=== PATIENT | female | born 1980 ===

== ENCOUNTER 2024-03-10 07:06 | Outpatient (REF) | payer OTHER, SELFPAY ==
--- NOTE | ~2024-03-10 | XR_ITS ---
EXAMINATION: XR ANKLE, RIGHT CLINICAL INFORMATION: Pain right ankle and joints of the foot. COMPARISON: None available. TECHNIQUE: AP, lateral, and mortise views of the right ankle. FINDINGS: Bone mineralization is normal. Small dorsal and plantar calcaneal spurs. Corticated ossicle at the dorsal aspect of the talonavicular joint. Ankle joint effusion and soft tissue swelling. Small ossicles in the soft tissues medial to the medial malleolus of indeterminate age and etiology. XR/XR ankle RT min 3V IMPRESSION: 1. Ankle joint effusion and soft tissue swelling. Small ossicles in the soft tissues medial to the medial malleolus of indeterminate age and etiology. 2. Recommend follow-up imaging in 10-14 days if fracture is suspected.
== END 2024-03-10 07:07 | disposition home or self-care (01) ==
LOC: HO.HOSX 07:06
PROVIDERS: Visit Provider Physician Assistant
DX: M25.571 Pain in right ankle and joints of right foot (principal)
CPT/HCPCS: 73610

== ENCOUNTER 2024-03-10 09:11 | Outpatient (AMB) | payer OTHER, SELFPAY ==
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
[2024-03-10 09:24] VITALS: BMI 27.5
== END 2024-03-10 10:16 | disposition home or self-care (01) ==
PROVIDERS: Visit Provider Physician Assistant
DX: S93.401A Sprain of unspecified ligament of right ankle, initial encounter (principal); Z04.3 Encounter for examination and observation following other accident
CPT/HCPCS: 99203

== ENCOUNTER 2024-06-08 09:00 | Outpatient (RCR) | payer OTHER, SELFPAY ==
--- NOTE | 2024-12-29 15:20 | MHC.PT.DC ---
[facility] [place] [facility] [place] Office [place] Office [address] Saniya Morillo [address] [phone] F: [phone] F: [phone] F: [phone] F: [phone] Physical Therapy Discharge Report Diagnosis: R ankle sprain Date of Surgery: Date of Evaluation: 04/25/24 Date of Discharge: 06/20/24 Treatments to Date: 11 Cancellations to Date: No Shows to Date: Discharge Status: Improved Function Independent with HEP Patient Elected to Stop Discharge Summary: Pt did not follow up with her final PT visits for final assessment. Electronically signed by: Elgin Burnett PT. Please sign and return to therapist. Thank you for your referral.
== END 2024-12-29 15:20 | disposition home or self-care (01) ==
LOC: HO.PT 09:00
PROVIDERS: PCP Internal Medicine; Visit Provider Physician Assistant
DX: S93.401D Sprain of unspecified ligament of right ankle, subsequent encounter (principal)
CPT/HCPCS: 97014; 97110; 97112; 97140; 97161; 97164; 97530

== ENCOUNTER 2024-06-14 09:54 | Outpatient (AMB) | payer OTHER, SELFPAY ==
--- NOTE | 2024-06-14 09:56 | A.OFFVIS_ITS ---
Intake Visit Reasons: OV-right foot numbness/tingling Intake Note: Roberta is a 44 year old female who presents to the office today for right foot numbness and tingling follow up. Pt states she has been doing PT will some relief but states she is still having the tingling/shocking in her right foot. Pt states the numbness and tingling goes to her toes and up to her knee. Pt states she just got approved for her foot insole so she hasnt been able to use it yet. Allergies No Known Allergies Allergy (Verified 06/14/24 09:57) Medication List - Last Reconciled 06/14/24 by Clarice Avilez PA-C [Anti-pronation orthotics Anti-pronation orthotics] celecoxib (Celebrex) 200 mg PO BID 30 days dextroamphetamine-amphetamine 10 mg 1 tab PO DAILY dextroamphetamine-amphetamine 30 mg ER (Adderall XR) 1 cap PO QAM ibuprofen 800 mg PO TID HPI HPI OV-right foot numbness/tingling: Details: 44-year-old female who returns to the office today for a follow-up of right foot. She continues to have pain, numbness, tingling and shocking sensation in her foot that radiates to her knee. She has been attending physical therapy with good relief. She has been taking gabapentin for her pain with benefits. Review of Systems Const All systems reviewed & are unremarkable except as noted in HPI and below Physical Exam Const General: cooperative, healthy appearing, comfortable, no acute distress, well developed and alert Orientation/consciousness: patient oriented x3 HEENT Head: Yes normal to inspection, Yes normocephalic and Yes atraumatic Eyes General: appearance normal, both eyes and all related structures Resp Effort & Inspection: normal respiratory effort and able to speak in complete sentences Cardio Rate: regular rate Peripheral pulses: Peripheral pulses 2+ throughout GI Palpation (GI): Soft to palpation Skin General skin exam: no rashes or lesions noted Lesions: no lesions Rashes: no rashes Neuro General: patient oriented x3 Extrem Other: Right ankle: Normal to inspection with mild tenderness along the soft tissues / ATFL . No discomfort along the posterior aspect of the ankle along the achilles tendon, no deformity along the Achilles tendon, negative Florian?s. No pain along the syndesmosis or anterior tibia. No laxity, Positive tinels over the tarsal tunnel . Assessment & Plan Assessment & Plan (1) Right ankle sprain: Code(s): S93.401A - Sprain of unspecified ligament of right ankle, initial encounter Category: Medical Qualifiers: Encounter type: initial encounter Involved ligament of ankle: anterior talofibular ligament Qualified Code(s): S93.491A - Sprain of other ligament of right ankle, initial encounter Plan An EMG/nerve conduction study was ordered to further evaluate her RLE etiology of hre ongoing numbness and tingling in right foot. I encouraged working with physical therapy and wearing appropriate footwear as well as use of her lace up ASO brace to help with her stability. She will discontinue Celebrex and use ibuprofen to take twice a day for 2 weeks to help with her discomfort. She will see me back once the scan is complete. Orders: Orders NE nerve conduction velocity Today R20.0 - Anesthesia of skin, R20.2 - Paresthesia of skin NE electromyogram (EMG) Today R20.0 - Anesthesia of skin, R20.2 - Paresthesia of skin Patient Instructions: Scribed for Clarice Avilez PA-C, by Garett Barnes family practice medical doctor, on 06/14/2024 at 9:45 AM EST.? I, Clarice Avilez PA-C, have personally reviewed and agree with the information entered by the scribe. Coding Level of Care Code Est Pt Level 3 (16987) Complex EM visit Add On G2211 Diagnoses Sprain of anterior talofibular ligament of right ankle, initial encounter S93.491A Encounter type: initial encounter Involved ligament of ankle: anterior talofibular ligament
== END 2024-06-14 10:09 | disposition home or self-care (01) ==
PROVIDERS: PCP Internal Medicine; Visit Provider Physician Assistant
DX: S93.491A Sprain of other ligament of right ankle, initial encounter (principal)
CPT/HCPCS: 99213; G2211

== ENCOUNTER → 2024-06-14 09:54 | Outpatient (BNVA) | payer OTHER, SELFPAY | PROVIDERS: PCP Internal Medicine; Visit Provider Physician Assistant | DX: S93.491A Sprain of other ligament of right ankle, initial encounter (principal) | CPT/HCPCS: 99212 ==

== ENCOUNTER 2024-08-02 09:02 | Outpatient (REF) | payer OTHER, SELFPAY ==
--- NOTE | 2024-08-02 09:08 | EMG_ITS ---
Chief complaint: Had right ankle sprain 07/2023, continues to have by paresthesias on right dorsal foot. Reason for referral: Evaluate for neuropathy Referred by: Clarice BARRY Procedure done: Right lower extremity NCS/EMG Precautions and/or limitations: None The limb temperature was monitored continuously and remained between 32-36 degrees C during the performance of the NCS. Nerve Conduction Studies Anti Sensory Summary Table ?Stim Site NR Onset (ms) Norm Onset (ms) Peak (ms) Norm Peak (ms) O-P Amp (?V) Norm O-P Amp Site1 Site2 Delta-0 (ms) Dist (cm) Tuan (m/s) Norm Tuan (m/s) Right Sural Anti Sensory (Lat Mall) Calf ? 2.5 3.3 <4.0 16.9 >5.0 Calf Lat Mall 2.5 14.0 56 Motor Summary Table ?Stim Site NR Onset (ms) Norm Onset (ms) O-P Amp (mV) Norm O-P Amp iAmp (mV) Amp (1st) (%) Site1 Site2 Delta-0 (ms) Dist (cm) Tuan (m/s) Norm Tuan (m/s) Right Peroneal Motor (Ext Dig Brev) Ankle ? 4.0 <4.0 3.6 >2.5 4.4 100.0 Ankle Ext Dig Brev 4.0 0.0 B Fib ? 10.2 3.5 4.3 97.2 B Fib Ankle 6.2 32.0 52 >40 Poplt ? 10.8 3.5 4.3 97.2 Poplt B Fib 0.6 6.0 100 >40 Right Tibial Motor (Abd Yadav Brev) Ankle ? 3.3 <5 7.7 >2.5 11.8 100.0 Ankle Abd Yadav Brev 3.3 0.0 Knee ? 11.0 5.7 8.8 74.0 Knee Ankle 7.7 38.0 49 >40 EMG ?Side Muscle Nerve Root Ins Act Fibs Psw Amp Dur Poly Recrt Int Pat Comment Right AntTibialis Dp Br Peron L4-5 Nml Nml Nml Nml Nml 0 Nml Complete Right MedGastroc Tibial S1-2 Nml Nml Nml Nml Nml 0 Nml Complete Right VastusMed Femoral L2-4 Nml Nml Nml Nml Nml 0 Nml Complete Right Peroneus Long Sup Br Peron L5-S1 Nml Nml Nml Nml Nml 0 Nml Complete Right PostTibialis Tibial L5, S1 Nml Nml Nml Nml Nml 0 Nml Complete FINDINGS: All motor and sensory nerves tested showed normal latencies, amplitudes and conduction velocities. Concentric needle EMG was performed in selected muscles of the right lower extremity. Study did not reveal signs of electric abnormalities as shown in the table above. IMPRESSION: 1. This is a normal study. 2. There is no electrodiagnostic evidence for peroneal neuropathy, tibial neuropathy, lumbosacral plexopathy, lumbar radiculopathy, or peripheral neuropathy. Thank you for your kind referral. Yanci Moreno MD, YONI Board Certified, [place] [employer] and [employer] (ABPMR) Board Certified, [place] Board [employer] Electrodiagnostic [employer] (ABEM) CODIN 54951 MTDD
== END 2024-08-02 09:03 | disposition home or self-care (01) ==
LOC: HO.NEURO 09:02
PROVIDERS: PCP Internal Medicine; Visit Provider Physician Assistant
DX: R20.0 Anesthesia of skin (principal); R20.2 Paresthesia of skin
CPT/HCPCS: 95886; 95908

== ENCOUNTER → 2024-08-02 09:08 | Outpatient (BNV) | payer OTHER, SELFPAY | PROVIDERS: PCP Internal Medicine; Visit Provider Physical Medicine & Rehabilitation | DX: R20.2 Paresthesia of skin (principal); R20.0 Anesthesia of skin | CPT/HCPCS: 95886; 95908 ==

== ENCOUNTER 2024-09-01 09:46 | Outpatient (AMB) | payer OTHER, SELFPAY ==
--- NOTE | 2024-09-01 09:46 | MHC.OFFVIS ---
Intake Visit Reasons: TH- RT foot EMG review Allergies No Known Allergies Allergy (Verified 06/14/24 09:57) Medication List - Last Reconciled 09/01/24 by Clarice Avilez PA-C [Anti-pronation orthotics Anti-pronation orthotics] celecoxib 200 mg PO BID dextroamphetamine-amphetamine 10 mg 1 tab PO DAILY dextroamphetamine-amphetamine 30 mg ER (Adderall XR) 1 cap PO QAM ibuprofen 800 mg PO TID HPI HPI TH- RT foot EMG review: Details: 44 yo female presents for telehealth EMG review right foot. She states she has some improvement in her symptoms since obtaining inserts for her shoes. She has also worked with PT. She states she does continue to have some numbness sensation at the end of a work day, otherwise, overall improved. Review of Systems Const All systems reviewed & are unremarkable except as noted in HPI and below Physical Exam Resp Effort & Inspection: normal respiratory effort and able to speak in complete sentences Telehealth Telehealth Patient verbally consented to treatment: Yes Patient verbally consented to billing insurance company: Yes Patient informed of any privacy concerns related to visit: Yes Results Reviewed Results Reviewed: IMPRESSION: 1. This is a normal study. 2. There is no electrodiagnostic evidence for peroneal neuropathy, tibial neuropathy, lumbosacral plexopathy, lumbar radiculopathy, or peripheral neuropathy. Assessment & Plan Assessment & Plan (1) Right ankle sprain: Code(s): S93.401A - Sprain of unspecified ligament of right ankle, initial encounter Category: Medical Qualifiers: Encounter type: initial encounter Involved ligament of ankle: anterior talofibular ligament Qualified Code(s): S93.491A - Sprain of other ligament of right ankle, initial encounter Plan: I encourgaed the patient to continue with proper shoe wear and her HEP from PT for her ankle to maintain her strength. If symptoms worsen or she has concerns, she will contact our office, otherwise, f/u prn Coding Level of Care Code Tele Est Pt Level 3 (14554) Diagnoses Sprain of anterior talofibular ligament of right ankle, initial encounter S93.491A Encounter type: initial encounter Involved ligament of ankle: anterior talofibular ligament
== END 2024-09-01 09:56 | disposition home or self-care (01) ==
LOC: HO.HOS 09:46
PROVIDERS: PCP Internal Medicine; Visit Provider Physician Assistant
DX: S93.491A Sprain of other ligament of right ankle, initial encounter (principal)
CPT/HCPCS: 99213

== ENCOUNTER 2025-02-19 15:11 | Outpatient (AMB) | payer OTHER, SELFPAY ==
[2025-02-19 15:15] VITALS: BP 152/84; PULSE 87; O2SAT 95; BMI 29.2
--- NOTE | 2025-02-19 15:15 | A.OFFVIS_ITS ---
Vital Signs 02/19/25 15:15 Height 5 ft 4 in Weight 170 lb 6.677 oz BMI 29.2 BP 152/84 H Blood Pressure Location Rt brachial Position Sitting Pulse 87 Pulse Source Pulse Oximeter Pulse Oximetry (%) 95 Oxygen Delivery Method Room Air Intake Visit Reasons: Obesity,DM Intake Note: New patient present today for Obesity. Patient reports she is taking compound Semaglutide, started approx 8-9 weeks ago and has lost 15 lbs since. Patient stated she does not have hx of DM. Backend Python Developer Required: No Accompanied by: Self / Same As Patient Allergies No Known Allergies Allergy (Verified 02/19/25 15:18) Medication List - Last Reconciled 02/19/25 by Enrike Canseco MD [Anti-pronation orthotics Anti-pronation orthotics] celecoxib 200 mg PO BID dextroamphetamine-amphetamine 10 mg 1 tab PO DAILY dextroamphetamine-amphetamine 30 mg ER (Adderall XR) 1 cap PO QAM ibuprofen 800 mg PO TID HPI Comments Details: The patient is a 44-year-old female presenting with obesity issues. She reports a longstanding history of weight management difficulties, having been thin into maturity and then starting to struggle with weight gain over the years due to overeating. Despite implementing a homeopathic diet and losing a significant amount of weight, she regained it after stopping due to its cost and upkeep demands. Recently, she has been prescribed compounded semaglutide, resulting in marked weight loss, though concerns have been raised about its safety and availability. The patient does not report any history of thyroid disorders or sleep apnea and maintains a regular sleep schedule. 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 Smoking cessation plans are noted contingent on achieving weight loss objectives. The patient also highlights past failures to maintain weight post- diet and complications from previous semaglutide formulations that lead to cessation. - Homeopathic medications leading to initial successful weight loss, later discontinued due to cost and sustainability. - Semaglutide compound, successfully reduced weight by 13-14 pounds, with current concerns over safety and availability. [facility] Medical History (Updated 02/19/25 @ 15:44 by Enrike Canseco MD) Obesity Diabetes Surgical History (Updated 02/19/25 @ 15:18 by PARESH Freeman) Hx of hand surgery Hx of tonsillectomy Family History (Updated 02/19/25 @ 15:19 by PARESH Freeman) Mother Epilepsy Lung cancer High blood pressure Father No known health problems Social History Alcohol intake: current Alcohol intake frequency: holidays/special occasions only Patient Tobacco Use Status: Current everyday Tobacco user Physical Exam Vital Signs: BMI result Body Mass Index 29.2 Absence of Cushingoid features. Thyroid gland of nl size and weighs 15 gms Neck Other: . Extrem Other: Visual exam of foot performed. No ulcerations or open lesions. No onchomycosis, no callouses.Pulses 2 + distally Sensation intact to monofilament exam. Vibratory sensation sensed is intact with 128 Hz tuning fork Assessment & Plan Assessment & Plan (1) Obesity: Code(s): E66.9 - Obesity, unspecified Category: Medical Plan 1. Obesity The patient exhibits an obesity clinical picture, previously addressed with compounded semaglutide. Following the safety concerns of compounded medications, exploration of approved alternatives like Wegovy or Zepbound is recommended. An appointment with a machine silk screen printer to tailor a structured diet and exercise regimen will ensure a foundational weight management approach. 3. Nutrition A referral to a machine silk screen printer aims to consolidate her dietary efforts, aligning structured dietary intervention with weight loss objectives, placing her in a stronger position for any future pharmacological support considerations. During our discussion, we addressed the primary concern of obesity, highlighting available pharmacological options while being mindful of the risks associated with compounded drugs. I explained the potential to pivot to FDA-approved medications contingent on insurance criteria. For proactive involvement, a structured nutrition and exercise regime will be pursued with the guidance of a videotape sales representative, indispensable for sustained weight control. Smoking cessation was acknowledged as critical, with patient commitment to quit post-weight reduction. I emphasized compliance with machine silk screen printer referrals to secure a thorough, comprehensive weight management picture. Exploring alternative payment plans for medications was suggested, considering insurance barriers experienced by others in similar situations. - Follow up with a machine silk screen printer to establish a structured diet and exercise plan. - Continue efforts toward smoking cessation. - Monitor weight regularly and report significant changes or concerns. - The patient was counseled to achieve a target A1C of 7% (154 avg). Fasting blood sugars should be 90-130 in the morning and less than 180 two hours after meals. Reviewed the relationship between poor diabetic control and the development of complications. Check your feet daily looking for any signs of infection, drainage, redness, ulceration and seek medical attention if this occurs. Break in shoes gradually and do not wear open-toed shoes or walk stocking footed or barefooted. The patient had an opportunity to ask questions regarding treatment plan. The patient expressed understanding and agreement with the above treatment plan. Patient was informed and verbally consented to the use of an ambient scribe for clinic note documentation during this visit. Orders: Orders Thyroid Stimulating Hormone Today E66.9 - Obesity, unspecified Free T4 (Free Thyroxine) Today E66.9 - Obesity, unspecified Referrals Nutrition/Dietitian Referral E66.9 - Obesity, unspecified Coding Level of Care Code New Pt Level 4 (91789) Diagnoses Obesity E66.9
--- OUTSIDE RECORDS SUMMARY | 2025-02-19 16:25 | XMS_ITS | Continuity of Care Document ---
Author Organization [facility] Adult Address [address] [place] [address]- Care Team Providers Care Extras Casting Director Name Role Phone Richard Davila MD Primary Care Physician [phone] [place] [facility] [place]25 [place] 02/13/25 [facility] [address] [place] [address]- Encounter Diagnosis Low back pain with left-sided sciatica(Discharge Diagnosis) - 02/06/25 Drug induced constipation(Discharge Diagnosis) - 02/06/25 Attending Physician: Richard Davila MD Encounter Type: Office Visit Allergies, Adverse Reactions, Alerts No Known Allergies Immunizations Given and Recorded Vaccine Date Status Refusal Reason SARS-CoV-2 (COVID-19) Ad26 vaccine 02/06/21 Record ed Tetanus Toxoid 04/05/15 Given Medications Adderall 10 mg oral tablet See Instructions, 1 tab po every day after lunch (patient takes the XR form of med daily at breakfast), # 28 tablet, 0 Refills, Maintenance, 01/29/25 8:06:00 AM EDT, [facility]/pharmacy #[id number], Partial fill upon patient request if the prescription is for a schedule II opioid drug., 1 tab po every day after lunch (patient takes the XR form of med daily at breakfast), 01/30/25, 164, cm, 10/10/24 13:50:00 EST , Height Start Date: 01/29/25 Status: Ordered Quantity: 28.0 Unit: tablet Repeat number: 1 Adderall XR 30 mg oral capsule, extended release 1 capsule = 30 mg, By Mouth, Daily in AM, # 28 capsule, 0 Refills, Maintenance, 01/29/25 8:06:00 AM EDT, ER Capsule, [id number], dose increase, 1 capsule By Mouth Daily in AM, 01/30/25, 164, cm, 10/10/24 13:50:00 EST, Height Start Date: 01/29/25 Status: Ordered Quantity: 28.0 Unit: capsule Repeat number: 1 duloxetine 60 mg oral enteric coated capsule 1 capsule, By Mouth, Daily, NEED INS., # 90 capsule, 4 Refills, Maintenance, 10/12/24 3:42:00 PM EST, [id number], 164, cm, 10/10/24 13:50:00 EST, Height Start Date: 10/12/24 Status: Ordered Quantity: 90.0 Unit: capsule Repeat number: 1 ibuprofen 800 mg oral tablet 1, tablet, By Mouth, 3 times a day, PRN, # 90 tablet, Refills 12, Maintenance, NEEDED FOR PAIN ,MODERATE, 06/19/24 7:22:00 AM EDT, Route to Pharmacy Electronically, [id number], 164, cm, 08/20/23 10:01:00 EST, Height Start Date: 06/19/24 Status: Ordered Quantity: 90.0 Unit: tablet Repeat number: 1 naproxen 500 mg oral tablet 1 tablet = 500 mg, By Mouth, 2 times a day, PRN for pain, with food, # 20 tablet, 0 Refills, Acute 02/16/25 10:58:00 AM EDT, 02/06/25 10:57:00 AM EDT, Tablet, [facility]/pharmacy #[id number], Partial fill upon patient request if the prescription is for a schedule II opioid drug., 164, cm, 02/06/25 10:42:00 EDT, Height Start Date: 02/06/25 Stop Date: 02/16/25 Status: Ordered Quantity: 20.0 Unit: tablet Repeat number: 1 semaglutide 0.5 mg/0.5 mL (0.5 mg dose) subcutaneous solution = 0.5 mg, Subcutaneous Injection, Every week, in the abdomen, thigh, or upper arm, # 2 mL, 0 Refills, Maintenance, 02/06/25 10:41:00 AM EDT, Solution, Partial fill upon patient request if the prescription is for a schedule II opioid drug. Start Date: 02/06/25 Stop Date: 03/06/25 Status: Ordered Quantity: 2.0 Unit: mL Repeat number: 1 Voltaren Arthritis Pain 1% topical gel 2.25 inches, Topically, 4 times a day, use dosing card to measure a dose, # 100 Gm, 0 Refills, Maintenance, 10/10/24 2:02:00 PM EST, Gel, [id number], Partial fill upon patient request if the prescription is for a schedule II opioid drug., 2.25 inches Topically 4 times a day,Instr:use dosing card to measure a dose, 164, cm, 10/10/24 13:50:00 EST, Height Start Date: 10/10/24 Status: Ordered Quantity: 100.0 Unit: g Repeat number: 1 Indication: Lateral epicondylitis, right elbow Problem List Condition Confirmation Course Effective Dates Status Health St atus Informant Anxiety 1 Confirmed Active [facility] arthritis Confirmed Active Attention deficit disorder Confirmed Active Overweight (BMI 25.0-29.9) Confirmed Active Burning epigastric pain Confirmed Active Cigarette smoker Confirmed Active Diarrhea Confirmed Active Excessive belching Confirmed Active Fibromyalgia, primary Confirmed Active Heartburn symptom Confirmed Active Low back pain with left-sided sciatica Confirmed Active General medical exam Confirmed Active Personal History of Peptic Ulcer Disease Confirmed 1995 Active Tobacco use disorder Confirmed Active 1with history of panic attacks. Diagnosis Diagnosis Type Effective Dates Health Status Clinical Service Informant Low back pain with left-sided sciatica Discharge Diagnosis 02/06/25 Drug induced constipation Discharge Diagnosis 02/06/25 Vital Signs Most recent to oldest [Reference Range]: 1 Height 164.00 cm (02/06/25 10:42 AM) Weight 76.9 kg (02/06/25 10:42 AM) Oxygen Saturation [94-100 %] 97 % (02/06/25 10:42 AM) Pulse Rate [55-90 bpm] 81 bpm (02/06/25 10:42 AM) Body Mass Index [18.5-24.99 kg/m2] 28.59 kg/m2 *H* (02/06/25 10:42 AM) Blood Pressure [90-138/55-84 mm Hg] 127/ 65mm Hg (02/06/25 10:42 AM) Temperature [96.8-100.4 DegF] 97.6 DegF (02/06/25 10:42 AM) Mode of Delivery (Oxygen) Room air (02/06/25 10:42 AM) Blood pressure sites Arm, left (02/06/25 10:42 AM) Temperature Route Oral (02/06/25 10:42 AM) Social History Social History Type Response Smoking Status 10 or more cigarette s (1/2 pack or more)/day in last 30 days; Started at age: 13; entered on: 07/30/23 Sex Sex Representation Female (finding) Note * Shilpa Gutierrez MA: PERFORM Event Display: Patient Education/Instruction Authored Date: Ambulatory Adult Visit Summary [facility] [address] [place] [address] Name: BYRON PARIKH : 1980?? Visit: 02/06/2025 10:35?? Ambulatory Visit Instructions ?? Your Care Team Primary Care Provider Richard Davila MD? This Visit Provider Richard Davila MD Your Diagnosis Low back pain with left-sided sciatica Drug induced constipation Vitals Signs Temperature: 97.6 DegF Height: 164 cm Pulse Rate: 81 bpm Weight: 76.9 kg Systolic Blood Pressure: 127 mm Hg Body Mass Index:??28.59 kg/m2??High Diastolic Blood Pressure: 65 mm Hg Body surface area: 1.87 Oxygen Saturation: 97 % ?? What to do next Instructions From Your Provider Naproxen 500 mg 2x a day for 10 days with food. ?? Call if persistent. ?? Miralax??17 grams mixed into fluid 1x a day titrating up or down per result. ? Follow-Up Appointments Follow Up with??Richard Davila MD When:??08/21/2025 02:40 PM EST Why: PHYSICAL?? Where: [address] [place] [address]- Medications The list below reflects the information in our records and provided by you today along with any changes made during this visit. Please continue your medications until treatment is completed or stopped by your provider. If this is different from the information you have or there are other questions,please contact the prescribing provider. What How Much When Why Instructions New Naproxen (naproxen 500 mg oral tablet) 1 tab(s) Oral Twice a day as needed for for pain with food ?? Pickup at [facility]/pharmacy #[id number] Unchanged Amphetamine-Dextroamphetamine (Adderall 10 mg oral tablet) See instructions 1 tab po every day after lunch (patient takes ??the XR form of med daily at breakfast) ?? Unchanged Amphetamine-Dextroamphetamine (Adderall XR 30 mg oral capsule, extended release) 1 capsule Oral Daily in the morning Unchanged Diclofenac Topical (Voltaren Arthritis Pain 1% topical gel) 2.25 Inch Topically 4 times a day Lateral epicondylitis, right elbow use dosing card to measure a dose ?? Unchanged Duloxetine (duloxetine 60 mg oral enteric coated capsule) 1 capsule Oral Daily NEED INS. ?? Unchanged Ibuprofen (ibuprofen 800 mg oral tablet) 1 tab(s) Oral 3 times a day as needed for NEEDED FOR PAIN , MODERATE Unchanged semaglutide (semaglutide 0.5 mg/ 0.5 mL (0.5 mg dose) subcutaneous solution) 0.5 Milligram Subcutaneous Injection Every week Duration: 4 week(s) in the abdomen, thigh, or upper arm ?? Pharmacy Information [facility]/pharmacy #[id number]: [address] [place], [place] [id number] [phone] Medications and Immunizations Administered Medications Given During Visit No medications given during this visit.?? Allergies (NKA means No Known Allergies) NKA Common Emergency Awareness Tips IS IT A STROKE? Act FAST and Check for these signs: FACE Does the face look uneven? ARM Does one arm drift down? SPEECH Does their speech sound strange? TIME Call at any sign of stroke ?? Heart Attack Signs Chest discomfort: Most heart attacks involve discomfort in the center of the chest and lasts more than a few minutes, or goes away and comes back. It can feel like uncomfortable pressure, squeezing, fullness or pain. Discomfort in upper body: Symptoms can include pain or discomfort in one or both arms, back, neck, jaw or stomach. Shortness of breath: With or without discomfort. Other signs: Breaking out in a cold sweat, nausea, or lightheaded. Remember, MINUTES DO MATTER. If you experience any of these heart attack warning signs, call to get immediate medical attention! ?? Smoking can increase your chances of developing chronic health problems and can cause harmful effects to other family members in your house. If you smoke, you are strongly encouraged to quit. Please call [employer] at [phone] or [phone] ([phone]) or log in to [email or web address] for referrals to smoking cessation programs. ?? The National Suicide Prevention Hotline is available 12/04 if you or someone you know needs to find a reason to keep living. By calling 5-371-371-[employer] (0807) you'll be connected to a skilled, trained counselor at a crisis center in your area. [facility] Portal You can view and manage your care through the patient portal or by using a health care kilo of your choosing. [employer] is a website that allows you to securely view your medical information including your hospital discharge summary, office visit summaries, medications and follow-up visits. You can also request appointments, renew medications, and request access to your medical information using a health care kilo of your choosing, or just ask a question. You can enroll at [email or web address] or register during your next office visit. [facility], in keeping with [facility] guidance, no longer requires face masks for staff, patientsor visitors in most situations. Similiar to time spent indoors at other locations, there is the chance that you were exposed to repiratory viruses during your time with us (such as flu or COVID-19). If you develop symptoms concerning for a viral respiratory infection, please seek testing (and treatment if indicated) from your medical provider or home test kit. ?? Disclaimer: The information provided is of a general nature and is intended to be used in conjunction with the recommendations and advice of your health care practitioner. Every effort has been made to ensure that the information provided is accurate and complete at the time it is provided to you however, as your needs change, or, as new information becomes available, different or additional instructions may be required. ?? If you have questions, please consult with your primary care provider or pharmacist, as appropriate. This information is not intended to serve as substitution for assessment and evaluation by a qualified health care provider. If you do not have a primary care provider, you may find a [facility] provider by calling [facility] at [phone]. Patient Care team information Care Team Personnel Name: Richard Davila MD Position: [facility] Physician - Primary Care Member Role: PCP Address: [address] [place] [address]- Telecom: Care Team Related Persons Name: BEAU ARTEAGA Name: GIOVANNI PARIKH Insurance Providers Guarantor name: BYRON PARIKH Health Plan Information #: 1 Payer: [facility] Member Number: [id number] Policy Number: NA Group Number: [id number] Health Plan Information #: 2 Payer: [facility] Member Number: [id number] Policy Number: NA Group Number: NA
== END 2025-02-19 16:01 | disposition home or self-care (01) ==
LOC: HO.ENCR 15:11
PROVIDERS: PCP Internal Medicine; Visit Provider Internal Medicine Endocrinology, Diabetes & Metabolism
DX: E66.9 Obesity, unspecified (principal)
CPT/HCPCS: 99204